=== PATIENT | female | born 1980 | race African-American/Black ===

== ENCOUNTER 2017-04-10 10:34 | Emergency (ER) | payer MEDICARE, OTHER ==
--- NOTE | ~2017-04-10 | EKG ---
PATIENT: MARY MADSEN UNIT #: [id number] Ventricular Rate: 93 BPM Atrial Rate: 93 BPM P-R Interval: 140 ms QRS Duration: 86 ms Q-T Interval: 388 ms QTC Calculation(Bezet): 482 ms P [place]: 57 degrees Calculated R [place]: 12 degrees Calculated T [place]: 1 degrees Diagnosis Line: Normal sinus rhythm Diagnosis Line: Possible Left atrial enlargement Diagnosis Line: Left ventricular hypertrophy Diagnosis Line: Nonspecific T wave abnormality Diagnosis Line: Prolonged QT Diagnosis Line: Abnormal ECG Diagnosis Line: When compared with ECG of 16-SEP-2016 18:21, Diagnosis Line: Nonspecific T wave abnormality has replaced Diagnosis Line: inverted T waves in Inferior leads Diagnosis Line: Confirmed by DORIAN MARLEY MD ([id number]) on Diagnosis Line: 04/10/2017 10:17:13 PM INTERPRETING MD: RADHA
--- NOTE | ~2017-04-10 | CR72 ---
[facility] A Service of [facility] & [facility] RADIOLOGY TEXT RESULTS PATIENT: MARY MADSEN LOCATION: [facility] : 76 UNIT #: [id number] AGE: [address]: Aaron Dodson MD SEX: F ORDER DR: [id number] [facility] [address] [place], [place] [address] [id number] MR#: [id number] Acc #: [id number] NAME: MARY MADSEN : 1980 SEX: F STUDY DATE/TIME: 04/10/2017 UNIT: [facility] ROOM: STUDY DESCRIPTION: CR Chest Single View Portable Attending Physician: Aaron Dodson M.D. Ordering Physician: Aaron Dodson M.D. MEDICAL IMAGING REPORT This report is preliminary unless electronic signature is present EXAM Chest portable 04/10/2017, 1122 hours HISTORY 37-year-old woman with complaint of left-sided chest pain today. COMPARISON 11/20/2016. FINDINGS Portable upright chest demonstrates an enlarged cardiac silhouette. This is stable to minimally increased from 11/20/2016. Pulmonary vascularity is normal. The lungs are clear. IMPRESSION 1. Cardiomegaly which is stable to slightly increased from 11/20/2016. The aortic contours are normal. The lungs are clear and there are no effusions. Dictated by... Ashlee Rosario M.D. THIS IS AN ELECTRONICALLY VERIFIED REPORT Ashlee Rosario M.D. at 04/11/2017 9:31 AM LISSA/iain TD: 04/10/2017 16:11 JOB #: [id number] MEDICAL IMAGING REPORT Page 1 of 1 COPY
[~2017-04-10 10:34] MED LIST: ACETAMINOPHEN650 M4 PO; ALDOMET250 MG PO; BYSTOLIC10 MG PO; CHLORTHALIDONE25 MG PO; COUMADIN PO; HYDRALAZINE HCL50 MG PO; HYDROCHLOROTHIA25 MG PO; ISORDIL PO; ISOSORBIDE DINI10 MG PO; LISINOPRIL-HCTZ1 T16 PO; LISINOPRIL-HCTZ1 T21 PO; LISINOPRIL20 MG PO; LOVENOX SUBQ; METOPROLOL SUCC25 MG PO; METOPROLOL TAR25 MG PO; NITROGYLCERIN SUBLINGUAL; NORVASC PO; NORVASC10 MG PO; PERCOCET 5/321 UDTAB PO; PHOSLO667 M1 PO; RENVELA800 MG PO; ROCALTROL0.5 MC1 PO; SIMVASTATIN10 MG PO; SOD BICARBONATE PO; VANCOMYCIN HCL1 GM IV; ZESTRIL10 M1 PO
[2017-04-10] MEDS ORDERED: ACID CONTROLLER20 MG PO (11:08)
[2017-04-10] MEDS ORDERED: MINOXIDIL PO (11:08)
[2017-04-10] MEDS ORDERED: HYDRALAZINE HC100 MG PO (11:08)
[2017-04-10] MEDS ORDERED: PATIENT'S PHARMACY (11:08)
[2017-04-10 11:19] LABS: BASOPHIL% 0.6 % (0-2.5); EOSINOPHIL# 0.1 X10e3 (0-0.7); EOSINOPHIL% 1.8 % (0.0-7.0); HEMATOCRIT 34.9 % (35.0-45.0); HEMOGLOBIN 11.5 gm/dL (12.0-16.0); LYMPHOCYTE# 1.5 X10e3 (1.0-3.5); LYMPHOCYTE% 20.9 % (17.0-45.0); MONOCYTE# 0.5 X10e3 (0-1.0); MONOCYTE% 6.7 % (3.0-12.0); PLATELET COUNT 301 X10e3 (140-420); RED BLOOD COUNT 3.49 X10e (3.90-5.30); RED CELL DISTRIBUTION WIDTH 15.6 % (11.0-15.5); WHITE BLOOD COUNT 7.1 X10e3 (4.0-10.5)
[2017-04-10 11:26] LABS: DIFF IND NO
[2017-04-10 11:32] LABS: POC - CKMB <1.0 ng/mL (0.0-7.9); POC - TROPONIN <0.05 ng/mL (<=0.05)
[2017-04-10 11:33] LABS: INR 1.4; PARTIAL THROMBOPLASTIN TIME 33.6 SECONDS (23.5-31.3); PROTHROMBIN TIME (PATIENT) 14.7 SECONDS (9.6-11.5)
[2017-04-10 11:46] LABS: ALBUMIN SERUM 3.8 g/dL (3.5-5.0); ALKALINE PHOSPHATASE 72 U/L (32-92); ALT (SGPT) 11 U/L (10-40); AST (SGOT) 21 U/L (10-42); BILIRUBIN, DIRECT <0.1 mg/dL (0.0-0.2); BILIRUBIN,INDIRECT 0.3 mg/dL (0.0-0.9); BILIRUBIN,TOTAL 0.4 mg/dL (0.2-2.0); BLOOD UREA NITROGEN 13 mg/dL (9-23); BUN/CREATININE RATIO 3.17; CALCIUM SERUM 8.4 mg/dL (8.4-10.2); CARBON DIOXIDE 32 mmol/L (22-31); CHLORIDE 96 mmol/L (100-111); CREATININE SERUM 4.1 mg/dL (0.6-1.4); GLOM FILT RATE Estimated 14.9 mL/min (>60); GLUCOSE FASTING 86 mg/dL (70-110); POTASSIUM 3.7 mmol/L (3.5-5.1); PROTEIN TOTAL SERUM 7.2 g/dL (6.0-8.3); SODIUM 138 mmol/L (135-145)
[2017-04-10 12:58] LABS: POC - CKMB <1.0 ng/mL (0.0-7.9); POC - TROPONIN <0.05 ng/mL (<=0.05)
== END 2017-04-10 13:15 | disposition home or self-care (01) ==
LOC: CED 10:34
PROVIDERS: Emergency Medicine
DX: R07.9 Chest pain, unspecified (principal); R00.2 Palpitations; I50.9 Heart failure, unspecified; N18.6 End stage renal disease
CPT/HCPCS: 36415; 71010; 80048; 80076; 82553; 84484; 85025; 85610; 85730; 93005; 99284